=== PATIENT | female | born 1965 | race Caucasian/White ===

== ENCOUNTER 2023-10-28 15:01 | Outpatient (OUT) | payer OTHER, SELFPAY ==
--- NOTE | 2023-10-28 15:12 | XR_ITS ---
The [address] [address] Patient Name: KALEIGH PRAJAPATI MRN: [id number] date: 1965 Sex: F Assigned Patient Location: [facility] Current Patient Location: [facility] Accession/Order Number: [id number] Exam Date: 10/28/2023 15:20 Report Date: 10/28/2023 16:29 At the request of: KORI VALDIVIA Procedure: XR knee LT 4V EXAM: XR knee LT 4V HISTORY: Left Knee Pain COMPARISON: None. TECHNIQUE: 4 views of the left knee were obtained. FINDINGS: There is no evidence of an acute fracture or dislocation. The joint spaces are intact throughout. There is no evidence of a joint effusion. No osteochondral injury is identified. Diffuse osteopenia is noted. XR/XR knee LT 4V IMPRESSION: No acute fracture or dislocation. Diffuse osteopenia is noted. No significant degenerative changes are identified. Electronically authenticated by: LEWIS CASTANON Date: 10/28/2023 16:29
== END 2023-10-28 15:02 | disposition home or self-care (01) ==
PROVIDERS: PCP Family Medicine; Visit Provider Family Medicine
DX: M25.562 Pain in left knee (principal)
CPT/HCPCS: 73564

== ENCOUNTER 2023-12-31 08:44 | Outpatient (OUT) | payer OTHER, SELFPAY ==
--- NOTE | 2023-12-31 08:46 | US_ITS ---
The [address] [address] Patient Name: KALEIGH PRAJAPATI MRN: [id number] date: 1965 Sex: F Assigned Patient Location: [place] Current Patient Location: [place] Accession/Order Number: [id number] Exam Date: 12/31/2023 08:55 Report Date: 12/31/2023 09:33 At the request of: GALILEO MOORE Procedure: US right upper quadrant EXAMINATION: US right upper quadrant HISTORY: Cirrhosis Of Liver K74.60 COMPARISON: CT abdomen pelvis 11/15/2022 TECHNIQUE: Transabdominal evaluation of the right upper quadrant. FINDINGS: LIVER: Small liver with increased echogenicity and nodular margins compatible with cirrhosis. 8 mm geographic shaped slightly hyperechoic structure within posterior medial right hepatic lobe; nonspecific but suggestive of a hemangioma. PORTAL VEIN: Duplex Doppler demonstrates normal hepatopetal flow pattern with flow velocity averaging 28 cm/s. GALLBLADDER: Cholecystectomy. BILIARY: No abnormal dilation or stones. Common bile duct diameter is within normal limits. PANCREASE: No visible mass, abnormal atrophy, or duct dilation. KIDNEY: No hydronephrosis. No visible mass or stones. Size: 8.7 x 4.0 x 3.8 cm US/US right upper quadrant IMPRESSION: 1. Marked cirrhotic appearance of liver. 2. No appreciable free fluid. Electronically authenticated by: DANIEL AVINA Date: 12/31/2023 09:33
[2023-12-31 10:08] LABS: Basophils Absolute Auto 0.1 10^3/uL (0.0-0.1); Basophils Percent Auto 0.9 % (0.2-2.0); Eosinophils Absolute Auto 0.1 10^3/uL (0.0-0.7); Eosinophils Percent Auto 1.5 % (0.9-7.0); Hematocrit 43.9 % (36.0-48.0); Hemoglobin 14.2 g/dL (12.0-16.0); Immature Granulocytes Abs Auto 0.01 10^3/uL (0.00-0.03); Immature Granulocytes Pct Auto 0.1 % (0.0-0.5); Lymphocytes Absolute Auto 3.4 10^3/uL (1.2-3.8); Lymphocytes Percent Auto 41.6 % (20.5-60.0); Mean Corpuscular HGB Conc 32.3 g/dL (29.9-35.2); Mean Corpuscular Hemoglobin 29.9 pg (26.7-34.0); Mean Corpuscular Volume 92.4 fL (81.0-99.0); Monocytes Absolute Auto 0.5 10^3/uL (0.3-0.8); Neutrophils Percent Auto 49.9 % (43.0-75.0); Platelet Count 261 10^3/uL (150-450); Red Blood Count 4.75 10^6/uL (4.20-5.40); White Blood Count 8.1 10^3/uL (4.0-11.0)
[2023-12-31 11:52] LABS: INR 0.98; Prothrombin Time 10.4 sec (9.0-11.6)
[2023-12-31 12:23] LABS: Alanine Aminotransferase 22 U/L (14-59); Albumin Globulin Ratio 0.9; Albumin Level 3.7 g/dL (3.4-5.0); Alkaline Phosphatase 197 U/L (46-116); Anion Gap 14.5; Aspartate Amino Transferase 21 U/L (15-37); BUN Creatinine Ratio 10.5; Bilirubin Total 0.5 mg/dL (0.2-1.0); Calcium 9.2 mg/dL (8.5-10.1); Carbon Dioxide 28.6 mmol/L (21.0-32.0); Chloride 103 mmol/L (98-107); Estimated GFR (African America 50 (>=60); Estimated GFR (Non-African Ame 41 (>=60); Glucose 95 mg/dL (74-106); Potassium 5.1 mmol/L (3.5-5.1); Sodium 141 mmol/L (136-145); Total Protein 7.7 g/dL (6.4-8.2)
== END 2023-12-31 08:45 | disposition home or self-care (01) ==
LOC: US 08:44
PROVIDERS: PCP Family Medicine; Visit Provider Internal Medicine
DX: K74.60 Unspecified cirrhosis of liver (principal)
CPT/HCPCS: 36415; 76705; 80053; 82728; 83540; 85025; 85610

== ENCOUNTER 2024-07-26 09:40 | Outpatient (OUT) | payer OTHER, SELFPAY ==
--- NOTE | 2024-07-26 09:56 | US_ITS ---
The [address] [address] Patient Name: KALEIGH PRAJAPATI MRN: [id number] date: 1965 Sex: F Assigned Patient Location: [place] Current Patient Location: [place] Accession/Order Number: [id number] Exam Date: 07/26/2024 10:00 Report Date: 07/26/2024 12:51 At the request of: GALILEO MOORE Procedure: US right upper quadrant EXAM: US right upper quadrant HISTORY: Hepatic Cirrhosis COMPARISON: 12/31/2023 TECHNIQUE: Grayscale, color and Doppler FINDINGS: The liver is small in size lobular contour with diffusely heterogeneous hyperechogenicity. 1.0 x 0.7 x 0.8 cm hyperechogenic lesion lobe, nonspecific. Hepatopedal flow in the main portal vein with velocity of 23 cm/s. The visualized pancreatic body is normal. The gallbladder is not visualized, consistent with provided history of cholecystectomy The right kidney measures 8.1 x 3.8 x 3.8 cm per the cortex measures 0.9 cm. No hydronephrosis US/US right upper quadrant IMPRESSION: Small nodular echogenic liver suggesting cirrhosis 1 cm echogenic indeterminate lesion in the right hepatic lobe, grossly stable Electronically authenticated by: VIKKI HAWLEY Date: 07/26/2024 12:51
== END 2024-07-26 09:41 | disposition home or self-care (01) ==
LOC: US 09:40
PROVIDERS: PCP Family Medicine; Visit Provider Internal Medicine
DX: K74.60 Unspecified cirrhosis of liver (principal)
CPT/HCPCS: 76705

== ENCOUNTER 2024-10-14 12:57 | Outpatient (OUT) | payer OTHER, SELFPAY ==
--- NOTE | 2024-10-14 13:01 | VEIN_ITS ---
The [address] [address] Patient Name: KALEIGH PRAJAPATI MRN: [id number] date: 1965 Sex: F Assigned Patient Location: Current Patient Location: Accession/Order Number: [id number] Exam Date: 10/14/2024 13:40 Report Date: 10/14/2024 17:04 At the request of: KORI VALDIVIA Procedure: VC SEGMENTAL PRESSURES EXAM: VC SEGMENTAL PRESSURES HISTORY: R09.89. Rest pain. COMPARISON: None. TECHNIQUE: Resting ABIs and segmental pressures were obtained. FINDINGS: Right resting KAYLYNN 0.69. Left resting KAYLYNN 0.77. On the right there is a pressure gradient from the upper thigh cuff to the lower thigh cuff suggesting superficial femoral artery disease. On the left there is a pressure gradient from the upper thigh cuff to the lower thigh cuff suggesting superficial femoral artery disease as well as a gradient from the lower thigh cuff to the proximal calf cuff suggesting popliteal disease. VEIN/VC SEGMENTAL PRESSURES IMPRESSION: 1. 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 2. Left resting KAYLYNN in the mild claudication range with probable superficial femoral artery and popliteal disease. Electronically authenticated by: Hernandez WEST Date: 10/14/2024 17:04
== END 2024-10-14 12:58 | disposition home or self-care (01) ==
LOC: VC 12:57
PROVIDERS: PCP Family Medicine; Visit Provider Family Medicine
DX: R09.89 Other specified symptoms and signs involving the circulatory and respiratory systems (principal); M79.672 Pain in left foot
CPT/HCPCS: 93923

== ENCOUNTER 2025-02-23 12:58 | Outpatient (OUT) | payer OTHER, SELFPAY | END 2025-02-23 12:59 | disposition home or self-care (01) | LOC: LAB 13:01 | PROVIDERS: PCP Family Medicine; Visit Provider Family Medicine | DX: E55.9 Vitamin D deficiency, unspecified (principal) | CPT/HCPCS: 36415; 82306 ==